=== PATIENT | female | born 1955 | race Caucasian/White ===

== ENCOUNTER 2023-10-18 16:27 | Outpatient (CLI) | payer MEDICARE, BC, SELFPAY | END 2023-10-18 16:28 | disposition home or self-care (01) | LOC: AMB 10-25 01:42 | PROVIDERS: Visit Provider Family Medicine | DX: C95.90 Leukemia, unspecified not having achieved remission (principal); R52 Pain, unspecified | CPT/HCPCS: A0425; A0428 ==